=== PATIENT | male | born 1995 | race Caucasian/White ===

== ENCOUNTER 2017-05-05 12:03 | Emergency (ER) | payer OTHER, SELFPAY ==
[2017-05-05] MEDS ORDERED: AMOXicillin 250 MG CAP ONE (12:15)
== END 2017-05-05 12:25 | disposition home or self-care (01) ==
LOC: BURERS 12:03
DX: J02.9 Acute pharyngitis, unspecified (principal)
CPT/HCPCS: 99282

== ENCOUNTER 2017-05-17 12:44 | Emergency (ER) | payer SELFPAY ==
--- NOTE | 2017-05-17 13:53 | RAD ---
CHEST TWO VIEWS: 05/17/2017 FINDINGS: The heart is normal in size, and the lungs are clear. no infiltrate or effusion is seen. There is no vascular congestion or edema. There is no evidence of pneumonia. IMPRESSION: No acute thoracic findings. POS: HOME
== END 2017-05-17 14:00 | disposition home or self-care (01) ==
LOC: BURERS 12:44
DX: J06.9 Acute upper respiratory infection, unspecified (principal)
CPT/HCPCS: 71020; 87081; 87430

== ENCOUNTER 2019-08-24 10:33 | Emergency (ER) | payer BC | END 2019-08-24 11:14 | disposition home or self-care (01) | LOC: BURERS 10:33 | DX: K42.9 Umbilical hernia without obstruction or gangrene (principal) | CPT/HCPCS: 99283 ==